=== PATIENT | female | born 1955 | race Caucasian/White ===

== ENCOUNTER 2019-08-03 17:30 | Inpatient (IN) | payer OTHER ==
[~2019-08-03] VITALS: Ht 152.4 cm; Wt 79.1 kg
[2019-08-03 17:40] VITALS: BP 121/74
--- NOTE | 2019-08-03 18:08 | EKG ---
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
[2019-08-03] MEDS ORDERED: ZOLPIDEM 5 MG TABLET. PO PRN (18:45)
[2019-08-03] MEDS ORDERED: NABU750T PO (19:15)
[2019-08-03] MEDS ORDERED: AMLO5TAB10 PO (19:15)
[2019-08-03] MEDS ORDERED: HYDR200T5 PO (19:15)
[2019-08-03] MEDS ORDERED: OMEP20CA16 PO (19:15)
[2019-08-03 19:42] LABS: BASO # 0.1 x10^3/uL (0.0-0.2); BASO % 1 % (0-3); EOS # 0.2 x10^3/uL (0.0-0.7); EOS % 3 % (0-3); HEMATOCRIT 36.9 % (36.0-47.0); HEMOGLOBIN 11.9 g/dL (12.0-15.5); LYMPH # 1.7 x10^3/uL (1.0-4.8); LYMPH % 21 % (24-48); MEAN CORPUSCULAR HEMOGLOBIN 31 pg (25-35); MEAN CORPUSCULAR HGB CONC 32 g/dL (31-37); MEAN CORPUSCULAR VOLUME 96 fL (79-100); MONO # 0.6 x10^3/uL (0.0-1.1); MONO % 7 % (0-9); NEUT # 5.6 x10^3uL (1.8-7.7); NEUT % 68 % (31-73); PLATELET COUNT 207 x10^3/uL (140-400); RED BLOOD COUNT 3.87 x10^6/uL (3.50-5.40); RED CELL DISTRIBUTION WIDTH 13.2 % (11.5-14.5); WHITE BLOOD COUNT 8.2 x10^3/uL (4.0-11.0)
[2019-08-03 19:55] LABS: ALBUMIN 3.5 g/dL (3.4-5.0); ALBUMIN/GLOBULIN RATIO 1.3 (1.0-1.7); CALCIUM 8.5 mg/dL (8.5-10.1); GFR 56.4; POTASSIUM 3.8 mmol/L (3.5-5.1); TOTAL BILIRUBIN 0.6 mg/dL (0.2-1.0); TOTAL PROTEIN 6.3 g/dL (6.4-8.2)
--- NOTE | 2019-08-03 20:16 | RAD ---
PA and lateral chest. HISTORY: CHF PA and lateral views were taken of the chest. Heart is upper normal in size. There is no pleural effusion. There is mild vascular congestion. There are no confluent areas of infiltrate. IMPRESSION: 1. Mild vascular congestion without confluent infiltrates. 2. No effusion. Electronically signed by: Ward Beltran MD (08/03/2019 8:14 PM) [id number]
[2019-08-03] MEDS: HYDROXYCHLOROQUINE 200 MG TABLET PO SCH (22:09)
[2019-08-03] MEDS: NABUMETONE 750 MG PO SCH (22:09)
[2019-08-03] MEDS: FUROSEMIDE 20 MG/2 ML VIAL IVP SCH (22:10)
[2019-08-03 22:14] VITALS: BP 104/65
[2019-08-03 23:12] LABS: BACTERIA,URINE 0 /HPF (0-FEW); BILIRUBIN,URINE NEG (NEG); CLARITY,URINE CLEAR; COLOR,URINE YELLOW; GLUCOSE,URINE NEG (NEG); NITRITE,URINE NEG (NEG); RBC,URINE 0 /HPF (0-2); SQUAMOUS EPITHELIAL CELL,UR OCC /LPF; UROBILINOGEN,URINE 0.2 mg/dL (0.2 mg/dL); WBC,URINE RARE /HPF (0-4)
[2019-08-04 05:18] VITALS: BP 92/53
[2019-08-04] MEDS: HYDROXYCHLOROQUINE 200 MG TABLET PO SCH (08:49)
[2019-08-04] MEDS: NABUMETONE 750 MG PO SCH (08:51)
[2019-08-04] MEDS: FUROSEMIDE 20 MG/2 ML VIAL IVP SCH ×2 (08:55→14:47)
[2019-08-04] MEDS ORDERED: PANTOPRAZOLE 40 MG TABLET. PO SCH (09:00)
[2019-08-04] MEDS ORDERED: amLODIPine BESYLATE 5 MG TABLET PO SCH (09:00)
[2019-08-04 10:22] VITALS: BP 104/62
--- NOTE | 2019-08-04 13:21 | CARD ---
MR#: [id number] Date of Study: 08/04/2019 Ordering Physician: LIYAH BOSS, Referring Physician: LIYAH BOSS, Tech: Yessenia Jolley [facility] [[email or web address]] APPROVED REPORT EXAM: Two-dimensional and M-mode echocardiogram with Doppler and color Doppler. Other Information Quality : AverageHR: 95bpm Rhythm : NSRTechnically limited study due to body habitus. INDICATION Congestive Heart Failure 2D DIMENSIONS RVDd2.8 (2.9-3.5cm)Left Atrium(2D)3.5 (1.6-4.0cm) IVSd0.8 (0.7-1.1cm)Aortic Root(2D)2.3 (2.0-3.7cm) LVDd4.1 (3.9-5.9cm)PWd1.2 (0.7-1.1cm) LVDs2.9 (2.5-4.0cm)FS (%) 29.2 % SV41.5 mlLVEF(%)56.6 (>50%) M-Mode DIMENSIONS Left Atrium(MM)3.43 (2.5-4.0cm)Aortic Root2.33 (2.2-3.7cm) Aortic Valve AoV Peak Nav.138.5cm/sAoV VTI25.3cm AO Peak GR.7.7mmHgAO Mean GR.4mmHg ARLEN (VTI)2.23cm2 Mitral Valve MV E Blbaheua57.8cm/sMV DECEL EYRA988jw MV A Hnzfbktz52.0cm/sE/A Ratio1.6 MV A Ciefpngt32rn Tricuspid Valve TR P. Vrgvaxmi270rw/sRAP RZDWPUCX1ofMg TR Peak Gr.24cjFkZVXJ52eiWm LEFT VENTRICLE The left ventricle is normal size. There is normal left ventricular wall thickness. The left ventricu lar systolic function is normal and the ejection fraction is within normal range. The Ejection Fracti on is 55-60%. There is normal LV segmental wall motion. Transmitral Doppler flow pattern is Grade II- pseudonormal filling dynamics. RIGHT VENTRICLE The right ventricle is normal size. There is normal right ventricular wall thickness. The right ventr icular systolic function is normal. ATRIA The left atrium size is normal. The right atrium size is normal. The interatrial septum is intact wit h no evidence for an atrial septal defect or patent foramen ovale as noted on 2-D or Doppler imaging. AORTIC VALVE The aortic valve is normal in structure and function. The aortic valve is trileaflet. Doppler and Col or Flow revealed no significant aortic regurgitation. There is no significant aortic valvular stenosi s. MITRAL VALVE The mitral valve is normal in structure and function. There is no evidence of mitral valve prolapse. There is no mitral valve stenosis. Doppler and Color-flow revealed trace to mild mitral regurgitation . TRICUSPID VALVE The tricuspid valve is normal in structure and function. Doppler and Color Flow revealed trace to mil d tricuspid regurgitation. The PA pressure was estimated at 25 mmHg. There is no tricuspid valve prol apse or vegetation. There is no tricuspid valve stenosis. PULMONIC VALVE The pulmonic valve is not well visualized. GREAT VESSELS The aortic root is normal in size. The ascending aorta is normal in size. The IVC is normal in size a nd collapses >50% with inspiration. PERICARDIAL EFFUSION There is no evidence of significant pericardial effusion. Critical Notification Critical Value: No <Conclusion> The left ventricular systolic function is normal and the ejection fraction is within normal range. Th e Ejection Fraction is 55-60%. There is normal LV segmental wall motion. Signed by : Tristen Rivera, Electronically Approved : 08/04/2019 11:04:55
[2019-08-04 13:59] LABS: THYROID STIM HORMONE (TSH) 2.611 uIU/mL (0.358-3.740)
[2019-08-04 14:49] VITALS: BP 123/74
[2019-08-04] MEDS ORDERED: FURO-68 PO (18:03)
--- NOTE | 2019-08-05 00:42 | PN ---
DATE: SUBJECTIVE: A 63-year-old female in with acute onset of congestive heart failure. The patient was having marked dyspnea just walking across the parking lot, became increasingly short of breath, had marked orthopnea, could not sleep in bed, had to sleep upright. She had about a 10-pound weight gain. The patient was brought in for new onset of congestive heart failure and further evaluation. The patient is receiving IV Lasix, good diuresis so far. The patient otherwise seems to be resting fairly comfortably. She is to be seen by Cardiology. OBJECTIVE: VITAL SIGNS: Blood pressure 105/60, respiratory rate 20, pulse 82, afebrile, good oxygen saturation just at rest. GENERAL: The patient is alert and oriented. LUNGS: Show some mild rhonchi, but improved from yesterday in the bases. CARDIOVASCULAR: Regular sinus rhythm. ABDOMEN: Soft, nontender. EXTREMITIES: No clubbing, cyanosis, +1 to 2 pitting edema. The patient's chest x-ray did show the possibility of obviously fluid buildup in the lungs themselves. The patient otherwise seems to be resting fairly comfortably. Awaiting report on the echo to make further evaluation and Cardiology consultation as well. IMPRESSION: Acute congestive heart failure. PLAN: As above. LIYAH OBSS MD DR: BAO/sen JOB#: [id number] / [id number]
--- NOTE | 2019-08-05 10:28 | PDOC ---
PROVIDER NOTE PROVIDER NOTE PROVIDER NOTE Late entry for 08/04/2019 Cardiology consultation note Reason for consultation heart failure History of present illness 63-year-old woman with a prior history of scleroderma comes into the hospital in the setting of progressive lower extremity edema. She states that over the last 2-3 weeks she's had worsening edema to point where she had pain and discomfort in her legs and also had exertional dyspnea. Upon arrival to the hospital the only abnormality was some mild vascular congestion on her chest x-ray. Previous bleeding she has been followed by her primary auto top mechanic through the [facility] system and apparently has not had any prior cardiac issues. After arrival she was diuresed with intravenous Lasix and has felt much better. She denies any exertional angina, dyspnea in the past, orthopnea or syncope/palpitations. Her scleroderma manifestations are only are cutaneous. Past medical history as noted above including scleroderma and minimal hypertension Social history patient denies any alcohol, tobacco or illicit drug use Family history is non-contributory Review systems is negative unless otherwise mentioned above in history of present illness Allergies reviewed Current cardiovascular medications include amlodipine Physical examination Vital signs stable The patient appeared well nourished and normally developed. Head exam is unremarkable. No scleral icterus or corneal arcus noted. Neck is without jugular venous distension, thyromegaly, or carotid bruits. Carotid upstrokes are brisk bilaterally. Lungs are clear to auscultation and percussion. Cardiac exam reveals the PMI to be normally sized and situated. Rhythm is regular. First and second heart sounds normal. No murmurs, rubs or gallops. Abdominal exam reveals normal bowel sounds, no masses, no organomegaly and no aortic enlargement. Extremities are nonedematous and both femoral and pedal pulses are normal. Msk: No traumua Neuro: No focal deficits Diagnostic studies reviewed EKG and echocardiogram are unremarkable BNP is minimally elevated Impression: 1. Diastolic heart failure, etiology is unclear but no obvious evidence of ischemia is noted. She appears to be doing much better since diuresis Recommendations: 1. I've asked her to follow-up with her primary care physician/auto top mechanic to further evaluate her dyspnea to rule out any pulmonary involvement from her scleroderma. Her echocardiogram today is unremarkable. Continue Lasix daily for the next 4-5 days and then 3 times a week as needed for lower extremity edema. We spoke about compression therapy as well as her obesity may lend itself to cause some lower extremity venous insufficiency. Supportive care from a cardiovascular standpoint. Thank you for this consultation. TONYA DUARTE MD Aug 05, 2019 10:28
== END 2019-08-04 18:25 | disposition home or self-care (01) | DRG 293 ==
LOC: 1 SOUTH 17:30
PROVIDERS: ADMIT Family Medicine; ATTEND Family Medicine
DX: I11.0 Hypertensive heart disease with heart failure (principal); I50.9 Heart failure, unspecified; M34.9 Systemic sclerosis, unspecified; E66.9 Obesity, unspecified; Z68.34 Body mass index [BMI] 34.0-34.9, adult
CPT/HCPCS: 36415; 71046; 80053; 80061; 81001; 82550; 83880; 84443; 84484; 85025; 85379; 93005; 93306

== ENCOUNTER → 2019-12-10 | Outpatient (CLI) | payer OTHER ==
[~2019-12-10] MED LIST: AMLO-186 PO; FURO-68 PO; HYDR200T5 PO; NABU750T7 PO; OMEP20CA16 PO
--- NOTE | 2019-12-10 15:04 | RAD ---
CT CHEST HIGH RESOLUTION WO INDICATION: SHORT OF AIR, SCLERODERMA Comparison: None. TECHNIQUE: Unenhanced axial CT sections were obtained through the lungs and upper abdomen. Coronal and sagittal multiplanar reconstructions were also obtained. Unenhanced thin section axial images were obtained through the lungs. Inspiratory and expiratory high resolution images were obtained. PQRS compliance statement: One or more of the following individualized dose reduction techniques were utilized for this examination: 1. Automated exposure control 2. Adjustment of the mA and/or kV according to patient size 3. Use of iterative reconstruction technique FINDINGS: Lungs and Airways: No pulmonary mass or consolidation No endoluminal lesion. Inspiratory thin section images demonstrate no evidence of ground glass opacity, consolidation, bronchiectasis or interstitial lung disease. No pulmonary micronodules, cystic changes or pulmonary fibrosis. Expiratory high resolution images demonstrate extensive bilateral air trapping. Pleura: The pleural spaces are normal. Heart and Mediastinum: The visualized portions of the thyroid gland are normal in size and attenuation. No axillary or supraclavicular lymphadenopathy. No mediastinal, hilar or retrocrural lymphadenopathy. Cardiomegaly. Coronary artery atherosclerotic disease The great vessels of the thorax are normal. Abdomen: Cholecystectomy Bones and Soft Tissues: Normal osseous structures. The soft tissues of the chest wall are within normal limits. IMPRESSION: 1. No evidence of interstitial lung disease. 2. Extensive bilateral air trapping on expiratory imaging, likely due to small airways disease. Considerations would include constrictive bronchiolitis, given history of scleroderma. Correlate with pulmonary function tests. 3. Coronary artery atherosclerotic disease. Electronically signed by: Tr Dorantes MD (12/10/2019 3:02 PM) [id number]
== END ==
LOC: CT 13:56
PROVIDERS: ATTEND Internal Medicine Pulmonary Disease
DX: R06.02 Shortness of breath (principal); M34.9 Systemic sclerosis, unspecified; I25.10 Atherosclerotic heart disease of native coronary artery without angina pectoris
CPT/HCPCS: 71250

== ENCOUNTER → 2020-03-02 | Outpatient (CLI) | payer OTHER ==
[~2020-03-02] MED LIST changes: -AMLO-186 PO; +AMLO5TAB10 PO; +NABU750T PO; -NABU750T7 PO; +REGADENOSON 0.4 MG/5 ML DISP.SYRIN. IV ONE
--- NOTE | 2020-03-02 13:39 | RAD ---
MR#: [id number] Date of Study: 03/02/2020 Ordering Physician: TONYA DUARTE, Referring Physician: CHENG CHASE Tech: CARMEN García APPROVED REPORT Test Type: Pharmacological Stress Nurse/Tech: CARMEN García Test Indications: Shortness of breath Cardiac History: none Medications: see EHR Medical History: see EHR Resting ECG: SR Resting Heart Rate: 91 bpm Resting Blood Pressure: 148/53mmHg Pretest Chest Pain: None Nurse/Tech Notes Consent: The procedure was explained to the patient in lay terms. Informed consent was witnessed. Surinder eout was entered into [employer]. History and Stress Test performed by CARMEN García Pharm. Details Pharmacologic stress testing was performed using 0.4mg per 5ml of regadenoson given intravenously ove r 7-10 seconds. POST EXERCISE Max HR: 107 bpm Max Blood Pressure: 112/53mmHg Blood Pressure response to exercise: Normal blood pressure response during stress. Chest Pain: No. Arrhythmia: No. INTERPRETATION Stress EKG Conclusion: No acute changes with stress Imaging Protocol IMAGE PROTOCOL: Rest Tc-99m/stress Tc-99m 1 day Rest: Stress: Viability: Radiopharm.Tc99m FkgnitqqhZu09p Sestamibi Tehr03fSn 33mCi Duration 15min. 10min. Img Date 03/02/2020 03/02/2020 Inj-Img Inoi74vqm. 60min. Rest Admin Site:IV - Right HandAdministrator: CARMEN García Stress Admin Site: IV - Right HandAdministrator: CARMEN García STRESS DATA End Diast. Vol.61.0mlAv. Heart Rate82.0bpm End Syst. Vol.5.0mlCO Index BSA0.0L/min Myocardial Xizt947.0gEject. Xnezmpcx57.0% Stress Rates Pk. Fill Rate3.68EDV/secLVtime Pk. Fill 118.17msec Pk. Empty Rate3.78ESV/secLVtime Pk. Qmtus670.21msec 06/25 Pk. Fill1.99EDV/sec Stress Scores Regional WT0.00Summed WT0.00 Regional WM0.00Summed WM0.00 The rest and stress images show normal perfusion, normal contraction and thickening. LV Perf. Quant 17 Seg. SSS2.00 17 Seg. SRS0.00 17 Seg. SDS2.00 Stress Defect Extent (% LAD)7.50Rest Defect Extent (% LAD)0.00Rev. Defect Extent (% LAD)0.00 Stress Defect Extent (% LCX) 0.00Rest Defect Extent (% LCX)0.00Rev. Defect Extent (% LCX)0.00 Stress Defect Extent (% RCA)0.00Rest Defect Extent (% RCA)0.00Rev. Defect Extent (% RCA)0.00 Stress Defect Extent (% MAYNOR)3.90Rest Defect Extent (% MAYONR)0.00Rev. Defect Extent (% MAYNOR)0.00 Other Information Quality:Good Risk Assessment: Low Risk Conclusion 1. No evidence of EKG changes with stress testing. 2. Normal perfusion at stress/rest. 3. Low risk study. 4. EF > 60%. Signed by : Tonya Duarte, Electronically Approved : 03/02/2020 13:38:55
== END | disposition home or self-care (01) ==
LOC: NM 08:30
PROVIDERS: ATTEND Internal Medicine Cardiovascular Disease
DX: I11.0 Hypertensive heart disease with heart failure (principal); I50.30 Unspecified diastolic (congestive) heart failure; M34.89 Other systemic sclerosis; Z88.8 Allergy status to other drugs, medicaments and biological substances; Z83.3 Family history of diabetes mellitus; Z79.899 Other long term (current) drug therapy
CPT/HCPCS: 78452; 93017; 96374; 96376; A9500

== ENCOUNTER 2021-02-28 05:04 | Inpatient (IN) | payer OTHER ==
[~2021-02-28] VITALS: Ht 152.4 cm; Wt 75.1 kg
[~2021-02-28 05:04] MED LIST changes: +AMLO-186 PO; -AMLO5TAB10 PO; -NABU750T PO; +NABU750T11 PO; -REGADENOSON 0.4 MG/5 ML DISP.SYRIN. IV ONE
--- NOTE | 2021-02-28 05:06 | PHYS DOC ---
Past History Past Medical History: Arthritis, GERD Past Medical History Scleroderma diagnosed 2011 Smoking: Non-smoker General Adult EDM: Chief Complaint: CHEST PAIN HPI: HPI: ".. I ve been having chest pain all night .. here in center of my chest.. and it goes into my Lt. arm shoulder.. and I just could not get to sleep.. I am to see a research consultant .. Dr López.. " Patient is a 65 year old female who presents with above hx and complaints of chest pain. Pain has been varying intensity throughout the night. Never low enough that allow her to go to sleep. Patient rating her pain as 7 out of 10 patient has been having the pain off and on for the past couple weeks. Patient localizes pain to chest left shoulder and to the left neck. Patient states nothing seems to make it better or worse. Patient denies any trauma. Patient denies any sick ill contacts. Patient denies any recent travel no history of immunosuppression. Patient does have a history of sclera derma diagnosed in 2011., GERD, CHF, arthritis,.. The patient does not smoke. Patient does not use alcohol or illicit drugs. Patient has had COVID vaccination. the pt. normally follows with Dr Boss. Pt. follows with Dr. Grey Guillen [facility] for her Scleroderma med tx. patient is not on a anticoagulant. Patient not currently on any steroids. Review of Systems: Review of Systems: Constitutional: Denies fever or chills Eyes: Denies change in visual acuity HENT: Denies nasal congestion or sore throat Respiratory: Denies cough or shortness of breath Cardiovascular: Complains of chest pain GI: Denies abdominal pain, nausea, vomiting, bloody stools or diarrhea : Denies dysuria Musculoskeletal: Complains of neck pain Integument: Denies rash Neurologic: Denies headache, focal weakness or sensory changes Endocrine: Denies polyuria or polydipsia Lymphatic: Denies swollen glands Psychiatric: Denies depression or anxiety Family History: Family History: Noncontributory to presentation Current Medications: Current Meds: See nursing for home meds Allergies: Allergies: Allergies Coded Allergies Type Severity Reaction Last Updated Verified prochlorperazine Allergy Unknown 08/03/19 Yes Physical Exam: PE: Constitutional: Moderate acute distress, non-toxic appearance. [] HENT: Normocephalic, atraumatic, bilateral external ears normal, oropharynx moist, no oral exudates, nose normal. [] Eyes: PERRLA, EOMI, conjunctiva normal, no discharge. Glasses Neck: Normal range of motion, no tenderness, supple, no stridor. [] Cardiovascular:Heart rate regular rhythm, no murmur []. PMI slightly to left. Lungs & Thorax: Bilateral breath sounds equal at apex auscultation [] Abdomen: Bowel sounds normal, soft, no tenderness, no masses, no pulsatile masses. [] Skin: Warm, dry, no erythema, no rash. Poor turgor Back: No tenderness, no CVA tenderness. [] Extremities: No tenderness, no cyanosis, no clubbing, ROM intact, no edema. No cording appreciated Neurologic: Alert and oriented X 3, normal motor function, normal sensory function, no focal deficits noted. [] Psychologic: Affect anxious, judgement normal, mood normal. [] EKG: EKG: My interpretation EKG shows a sinus rhythm at 71 bpm. There is some prolonged QT interval at 448 ms. QTC is 492 ms. No findings of acute STEMI with c ontralateral changes. Time of EKG is 517 hours [] Radiology/Procedures: Radiology/Procedures: My interpretation of chest x-ray shows no marked areas of infiltrate. Heart size is to the upper sides of normal. There is no pleural effusions. There may be some mild vascular congestion. See formal report when available [] Heart Score: C/O Chest Pain: Yes HEART Score for Chest Pain: HEART Score for Chest Pain Response (Comments) Value History Slighlty/Non-Suspicious 0 ECG Nonspecific Repolarizatio 1 Age >45 - < 65 1 Risk Factors 1 or 2 Risk Factors 1 Total 3 Risk Factors: Risk Factors: DM, Current or recent (<one month) smoker, HTN, HLP, family history of CAD, obesity. Risk Scores: Score 0 - 3: 2.5% MACE over next 6 weeks - Discharge Home Score 4 - 6: 20.3% MACE over next 6 weeks - Admit for Clinical Observation Score 7 - 10: 72.7% MACE over next 6 weeks - Early Invasive Strategies Course & Med Decision Making: Course & Med Decision Making Pertinent Labs and Imaging studies reviewed. (See chart for details) Pain is very resolved at 541 hours. Discussed presentation, testing and tx plan with Dr. Boss. Advised admit to his service with Cardiology consult. Impression: 1. Chest pain 2. History of CHF 3. History of GERD 4. History of scleroderma 5. Hx of Anxiety [] Dragon Disclaimer: Janet Disclaimer: This electronic medical record was generated, in whole or in part, using a voice recognition dictation system. Departure Departure: Referrals: LIYAH BOSS MD (PCP) HILDA PTETIT MD Feb 28, 2021 05:06
[2021-02-28] MEDS ORDERED: ASPIRIN CHEWABLE 81 MG TABLET. PO ONE ×2 (05:15→09:00)
[2021-02-28] MEDS ORDERED: IV RINGERS SOLUTION,LACTATED 1,000 ML IV SCH (05:15)
[2021-02-28] MEDS ORDERED: FAMOTIDINE 20 MG/2 ML VIAL IVP ONE (05:30)
--- NOTE | 2021-02-28 05:30 | EKG ---
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
[2021-02-28 05:46] LABS: CALCIUM 8.6 mg/dL (8.5-10.1); POTASSIUM 3.8 mmol/L (3.5-5.1)
[2021-02-28 05:58] LABS: ALBUMIN 3.5 g/dL (3.4-5.0); DIRECT BILIRUBIN 0.1 mg/dL (0.0-0.2); MAGNESIUM 2.3 mg/dL (1.8-2.4); TOTAL BILIRUBIN 0.6 mg/dL (0.2-1.0); TOTAL PROTEIN 5.9 g/dL (6.4-8.2)
[2021-02-28] MEDS ORDERED: ENOXAPARIN ** NOTE DOSE ** SYRINGE SQ ONE ×2 (06:00→21:00)
[2021-02-28] MEDS ORDERED: ONDANSETRON PF 4 MG/2 ML VIAL. IVP PRN (06:00)
[2021-02-28] MEDS ORDERED: ACETAMINOPHEN 325 MG TABLET PO PRN (06:00)
[2021-02-28 06:46] LABS: BARBITURATES NEG (NEG); BENZODIAZEPINES NEG (NEG); CANNABINOIDS NEG (NEG); COCAINE NEG (NEG); METHADONE NEG (NEG); OPIATES NEG (NEG); PHENCYCLIDINE NEG (NEG)
[2021-02-28 06:48] LABS: BASO # 0.1 x10^3/uL (0.0-0.2); BASO % 1 % (0-3); EOS # 0.2 x10^3/uL (0.0-0.7); EOS % 2 % (0-3); HEMATOCRIT 38.5 % (36.0-47.0); HEMOGLOBIN 12.7 g/dL (12.0-15.5); LYMPH # 2.2 x10^3/uL (1.0-4.8); LYMPH % 24 % (24-48); MEAN CORPUSCULAR HEMOGLOBIN 32 pg (25-35); MEAN CORPUSCULAR HGB CONC 33 g/dL (31-37); MEAN CORPUSCULAR VOLUME 98 fL (79-100); MONO # 0.6 x10^3/uL (0.0-1.1); MONO % 7 % (0-9); NEUT # 6.1 x10^3uL (1.8-7.7); NEUT % 67 % (31-73); PLATELET COUNT 219 x10^3/uL (140-400); RED BLOOD COUNT 3.93 x10^6/uL (3.50-5.40); RED CELL DISTRIBUTION WIDTH 12.9 % (11.5-14.5); WHITE BLOOD COUNT 9.1 x10^3/uL (4.0-11.0)
[2021-02-28 06:50] LABS: AMPHETAMINE/METHAMPHETAMINE NEG (NEG)
[2021-02-28 07:03] LABS: BACTERIA,URINE 0 /HPF (0-FEW); BILIRUBIN,URINE NEG (NEG); CLARITY,URINE HAZY; COLOR,URINE YELLOW; GLUCOSE,URINE NEG (NEG); HYALINE CASTS, URINE FEW /HPF; NITRITE,URINE NEG (NEG); RBC,URINE OCC /HPF (0-2); SQUAMOUS EPITHELIAL CELL,UR MOD /LPF; UROBILINOGEN,URINE 0.2 mg/dL (0.2 mg/dL)
--- NOTE | 2021-02-28 07:24 | RAD ---
XR CHEST 1V History: Chest pain Comparison: None. Technique: AP radiograph of the chest. Findings: The lungs are adequately and symmetrically inflated. No airspace consolidation, pleural effusion or p neumothorax. The cardiomediastinal silhouette and pulmonary vasculature are within normal limits. No acute osseous abnormality. Soft tissues are unremarkable. Impression: 1. No acute cardiopulmonary process. Electronically signed by: Finn Joseph MD (02/28/2021 7:22 AM) [facility]
--- NOTE | 2021-02-28 08:22 | PDOC2 ---
SHIRA OGDEN BELLE 02/28/21 0822: CARDIAC CONSULT DATE OF CONSULT DOS: DATE: 02/28/21 TIME: 08:14 REASON FOR CONSULT Reason for Consult Chest pain REFERRING PHYSICIAN Referring Physician Dr. Ko SOURCE Source: Chart review, Patient HPI History of Present Illness This is a 65 yo female, with a history of scleroderma, who presented secondary to chest pain. Patient reports intermittent pressure in her central chest for the last several years. Seems to occur with exertional activities and resolved with rest. She underwent stress test and echocardiogram last year that were unremarkable. In recent months, pain has been occurring more frequently and also developing at rest. Over the last couple of weeks, has been experiencing this pain at night as well. Is located in her left chest. Describes as pressure. Radiated down her left arm. Not associated with dizziness, nausea, or diaphoresis. Pain seemed to improved with sitting up. Does have a history of G ERD and is on PPI. Reports pain to be different than what she typically experiences with GERD. 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 Last night, pain was very intense and was associate with shortness of breath, left arm pain/hand tingling, diaphoresis, and so she came to the ED for further evaluation and treatment. Initial troponin negative and EKG unremarkable. PAST MEDICAL HISTORY Past Medical History Scleroderma GI: Diverticulosis, GERD PAST SURGICAL HISTORY Past Surgical History: Cholecystectomy FAMILY HISTORY Family History: Cancer, Diabetes SOCIAL HISTORY Smoke: No ALCOHOL: none Drugs: None Lives: with Family CURRENT MEDICATIONS Current Medications Current Medications Aspirin (Aspirin Chewable) 324 mg 1X ONCE PO Last administered on 02/28/21at 05:31; Start 02/28/21 at 05:15; Stop 02/28/21 at 05:16; Status DC Lactated Ringer's 1,000 ml @ 100 mls/hr Q10H IV Last administered on 02/28/21at 05:31; Start 02/28/21 at 05:15; Stop 02/28/21 at 15:14 Famotidine (Pepcid Vial) 20 mg 1X ONCE IVP Last administered on 02/28/21at 05:39; Start 02/28/21 at 05:30; Stop 02/28/21 at 05:31; Status DC Enoxaparin Sodium (Lovenox 60mg Syringe) 70 mg 1X ONCE SQ ; Start 02/28/21 at 06:00; Stop 02/28/21 at 06:01; Status DC Ondansetron HCl (Zofran) 4 mg PRN Q4HRS PRN IVP NAUSEA/VOMITING; Start 02/28/21 at 06:00; Stop 03/01/21 at 05:59 Morphine Sulfate (Morphine 2mg Syringe) 2 mg PRN Q2HR PRN IVP PAIN; Start 02/28/21 at 06:00; Stop 03/01/21 at 05:59 Acetaminophen (Tylenol) 650 mg PRN Q4HRS PRN PO FEVER > 100.3'F; Start 02/28/21 at 06:00; Stop 03/01/21 at 05:59 Aspirin (Aspirin Chewable) 81 mg DAILY ONCE PO ; Start 02/28/21 at 09:00; Stop 02/28/21 at 09:01 Enoxaparin Sodium (Lovenox 60mg Syringe) 70 mg BID ONCE SQ ; Start 02/28/21 at 21:00; Stop 02/28/21 at 21:01 Famotidine (Pepcid) 20 mg BID ONCE PO ; Start 02/28/21 at 21:00; Stop 02/28/21 at 21:01 Sucralfate (Carafate) 1 gm QID ONCE PO ; Start 02/28/21 at 09:00; Stop 02/28/21 at 09:01 Active Scripts Active Reported Lasix (Furosemide) 40 Mg Tablet 1 Tab PO DAILY 5 Days LAST DOSE GIVEN: DATE: TODAY TIME: AM NEXT DOSE DUE: DATE: TOMORROW TIME: AM Omeprazole 20 Mg Capsule.dr 1 Cap PO DAILY LAST DOSE GIVEN: DATE: TODAY TIME: AM NEXT DOSE DUE: DATE: TOMORROW TIME: AM Hydroxychloroquine Sulfate 200 Mg Tablet 1 Tab PO BID LAST DOSE GIVEN: DATE: TODAY TIME: AM NEXT DOSE DUE: DATE: TODAY TIME: PM Amlodipine Besylate 5 Mg Tablet 1 Tab PO DAILY LAST DOSE GIVEN: DATE: TODAY TIME: AM NEXT DOSE DUE: DATE: TOMORROW TIME: AM Nabumetone 750 Mg Tablet 1 Tab PO BID LAST DOSE GIVEN: DATE: TODAY TIME: AM NEXT DOSE DUE: DATE: TODAY TIME: PM ALLERGIES Allergies: Coded Allergies: prochlorperazine (Verified Allergy, Unknown, 08/03/19) ROS Review of Systems 14 point ROS conducted with pertinent positives noted above in HPI PHYSICAL EXAM General: Alert, Oriented X3, Cooperative, No acute distress HEENT: Atraumatic Lungs: Clear to auscultation Heart: Regular rate Abdomen: Soft, No tenderness Extremities: No edema, Normal pulses Skin: No breakdown Neuro: Normal speech, Sensation intact Psych/Mental Status: Mental status NL, Mood NL MUSCULOSKELETAL: Osteoarthritic changes both hands VITALS Vital Signs Vital Signs Date Time Temp Pulse Resp B/P (MAP) Pulse Ox O2 Delivery O2 Flow Rate FiO2 02/28/21 07:38 76 16 136/65 (88) 96 Room Air 02/28/21 05:09 98.4 LABS LABS Laboratory Tests Test 02/28/21 05:15 02/28/21 06:00 02/28/21 06:25 Prothrombin Time 10.3 SEC (9.4-11.4) Prothromb Time International Ratio 1.0 (0.9-1.1) Activated Partial Thromboplast Time 25 SEC (23-33) D-Dimer (June) < 0.19 mg/L (0.00-0.50) Sodium Level 143 mmol/L (136-145) Potassium Level 3.8 mmol/L (3.5-5.1) Chloride Level 107 mmol/L (98-107) Carbon Dioxide Level 25 mmol/L (21-32) Anion Gap 11 (6-14) Blood Urea Nitrogen 19 mg/dL (7-20) Creatinine 1.0 mg/dL (0.6-1.0) Estimated GFR (Cockcroft-Gault) 56.0 Glucose Level 132 mg/dL (70-99) Calcium Level 8.6 mg/dL (8.5-10.1) Magnesium Level 2.3 mg/dL (1.8-2.4) Total Bilirubin 0.6 mg/dL (0.2-1.0) Direct Bilirubin 0.1 mg/dL (0.0-0.2) Aspartate Amino Transf (AST/SGOT) 20 U/L (15-37) Alanine Aminotransferase (ALT/SGPT) 24 U/L (14-59) Alkaline Phosphatase 107 U/L (46-116) Creatine Kinase 87 U/L (26-192) Troponin I Quantitative < 0.017 ng/mL (0-0.055) TL-Hlj-W-Type Natriuretic Peptide 123 pg/mL (0-124) Total Protein 5.9 g/dL (6.4-8.2) Albumin 3.5 g/dL (3.4-5.0) Lipase 181 U/L (73-393) Urine Collection Type Unknown Urine Color Yellow Urine Clarity Hazy Urine pH 6.0 Urine Specific Bates 1.020 Urine Protein Neg (NEG-TRACE) Urine Glucose (UA) Neg mg/dL (NEG) Urine Ketones (Stick) Neg mg/dL (NEG) Urine Blood Neg (NEG) Urine Nitrite Neg (NEG) Urine Bilirubin Neg (NEG) Urine Urobilinogen Dipstick 0.2 mg/dL (0.2 mg/dL) Urine Leukocyte Esterase Mod (NEG) Urine RBC Occ /HPF (0-2) Urine WBC 11-20 /HPF (0-4) Urine Squamous Epithelial Cells Mod /LPF Urine Transitional Epithelial Cells Few /LPF Urine Bacteria 0 /HPF (0-FEW) Urine Hyaline Casts Few /HPF Urine Mucus Mod /LPF Urine Opiates Screen Neg (NEG) Urine Methadone Screen Neg (NEG) Urine Barbiturates Neg (NEG) Urine Phencyclidine Screen Neg (NEG) Urine Amphetamine/Methamphetamine Neg (NEG) Urine Benzodiazepines Screen Neg (NEG) Urine Cocaine Screen Neg (NEG) Urine Cannabinoids Screen Neg (NEG) Urine Ethyl Alcohol Neg (NEG) SARS-CoV-2 Antigen (Rapid) Negative (NEGATIVE) White Blood Count 9.1 x10^3/uL (4.0-11.0) Red Blood Count 3.93 x10^6/uL (3.50-5.40) Hemoglobin 12.7 g/dL (12.0-15.5) Hematocrit 38.5 % (36.0-47.0) Mean Corpuscular Volume 98 fL (79-100) Mean Corpuscular Hemoglobin 32 pg (25-35) Mean Corpuscular Hemoglobin Concent 33 g/dL (31-37) Red Cell Distribution Width 12.9 % (11.5-14.5) Platelet Count 219 x10^3/uL (140-400) Neutrophils (%) (Auto) 67 % (31-73) Lymphocytes (%) (Auto) 24 % (24-48) Monocytes (%) (Auto) 7 % (0-9) Eosinophils (%) (Auto) 2 % (0-3) Basophils (%) (Auto) 1 % (0-3) Neutrophils # (Auto) 6.1 x10^3uL (1.8-7.7) Lymphocytes # (Auto) 2.2 x10^3/uL (1.0-4.8) Monocytes # (Auto) 0.6 x10^3/uL (0.0-1.1) Eosinophils # (Auto) 0.2 x10^3/uL (0.0-0.7) Basophils # (Auto) 0.1 x10^3/uL (0.0-0.2) ECHOCARDIOGRAM Echocardiogram <Conclusion> The left ventricular systolic function is normal and the ejection fraction is within normal range. The Ejection Fraction is 55-60%. There is normal LV segmental wall motion. DATE: 08/04/19 1027 STRESS TEST Stress Test Conclusion 1. No evidence of EKG changes with stress testing. 2. Normal perfusion at stress/rest. 3. Low risk study. 4. EF > 60%. DATE: 03/02/20 1243 ASSESSMENT/PLAN Assessment/Plan 1. Chest pain with typical features; initial troponin negative. EKG without acute changes. MPI 03/12 without evidence of ischemia. Echo 08/12 with preserved LV systolic function 2. Scleroderma 3. GERD Recommendations Trend troponin ASA Lipids Will need further ischemic ischemic evaluation. Discussed aggressive, definitive approach with left heart cath versus repeating stress test, although this was conducted one year ago. Will await above to determine plan of care TONYA DUARTE MD 02/28/21 4625: CARDIAC CONSULT ASSESSMENT/PLAN Assessment/Plan Patient seen and examined. Agree with above nurse practitioner note. 65-year-old woman with features suggestive of unstable angina. I had a discussion with the patient regarding further evaluation as she has significant symptoms. She wishes to proceed with cardiac catheterization. We discussed the risks and benefits. We will plan on transferring to [facility] for possible cardiac catheterization tomorrow. SHIRA OGDEN APRN Feb 28, 2021 08:22 TONYA DUARTE MD Feb 28, 2021 17:15
[2021-02-28 08:55] VITALS: BP 151/72
[2021-02-28] MEDS ORDERED: SUCRALFATE 1 GM TABLET. PO ONE (09:00)
[2021-02-28] MEDS: ENOXAPARIN ** NOTE DOSE ** SYRINGE SQ SCH ×2 (10:08→20:37)
[2021-02-28] MEDS: FUROSEMIDE 40 MG TABLET PO SCH (10:29)
[2021-02-28] MEDS: MELOXICAM 15 MG TABLET. PO SCH (10:29)
[2021-02-28] MEDS ORDERED: IOHEXOL 350 MG/ML 100 ML VIAL. IV ONE (10:30)
[2021-02-28] MEDS: amLODIPine BESYLATE 5 MG TABLET PO SCH (10:30)
[2021-02-28] MEDS ORDERED: CONTRAST GIVEN. MC PRN (10:30)
[2021-02-28] MEDS ORDERED: PANTOPRAZOLE 40 MG TABLET. PO ONE (10:45)
[2021-02-28 11:00] VITALS: BP 132/65
[2021-02-28] MEDS: SUCRALFATE 1 GM TABLET. PO SCH ×3 (11:30→20:36)
[2021-02-28] MEDS: MORPHINE SULFATE 2 MG/ML DISP.SYRIN. IVP PRN ×2 (11:41→19:09)
--- NOTE | 2021-02-28 12:11 | RAD ---
Study: CT CHEST WITH CONTRAST - PULMONARY ANGIOGRAM History: Chest pain Comparison: CT chest 12/10/2019 Technique: Helical CT of the chest performed after the administration of 100 mL Omnipaque 350 intrav enous contrast and timed for angiographic evaluation of the pulmonary arteries per PE protocol. Coron al and sagittal 3D MIP reformations were obtained. One or more of the following individualized dose reduction techniques were utilized for this examinat ion: 1. Automated exposure control 2. Adjustment of the mA and/or kV according to patient size 3. Use of iterative reconstruction technique. Findings: Pulmonary Arteries: Contrast bolus is adequate. There is no acute pulmonary embolism. Heart/Systemic Vasculature: Heart is normal in size. No pericardial effusion. Mild coronary artery ca lcifications. No aortic dissection. Thoracic aorta is normal in caliber. Mediastinum: Small mediastinal and hilar lymph nodes are unchanged. Lungs: There is unchanged mosaic attenuation in the lungs. Central airways are clear. No pleural effu santiago. Neck/Axilla/Body Wall: No axillary lymphadenopathy. Breast tissue symmetric. Thyroid gland is unremar kable Upper Abdomen: Upper abdomen is unremarkable. Bones: No acute osseous abnormality. IMPRESSION: 1. No acute pulmonary embolism. 2. Unchanged mosaic attenuation of the lungs corresponding with air trapping on prior CT. Electronically signed by: Machelle Peck MD (02/28/2021 12:09 PM) [id number]
[2021-02-28 15:00] VITALS: BP 136/66
[2021-02-28 15:57] LABS: THYROID STIM HORMONE (TSH) 4.934 uIU/mL (0.358-3.740)
[2021-02-28] MEDS ORDERED: IV NORMAL SALINE 1,000ML 1,000 ML IV SCH (18:30)
[2021-02-28 18:44] VITALS: BP 103/65
[2021-02-28] MEDS: IV NORMAL SALINE 1,000ML 1,000 ML IV SCH (18:45)
--- NOTE | 2021-02-28 20:21 | HP ---
ADMIT DATE: 02/28/2021 HISTORY OF PRESENT ILLNESS: The patient is a 65-year-old female who for the past several days now has been having problems with chest discomfort, substernal chest pain radiating to her shoulders. The patient has also been having problems with some nausea. The pain usually gets worse at night and nothing seems to make it better or worse, is varying intensity, keeps her up as noted. The patient notes the pain as a 7/10. She also notes some of the pain located over the left shoulder and the like. The patient reports no shortness of breath, does have diaphoresis with this and does have some nausea with it as well. The patient was admitted for rule out [place] protocol and make further evaluation on her as indicated. The patient does note some of the pain is relieved with sitting up, however, worse when she is lying down. PAST MEDICAL HISTORY: That of scleroderma, hearing loss, hearing aid, shingles of the ear, tinnitus, cardiac disorder, chest pain with exertion and history of Raynaud's ____ scleroderma, respiratory symptoms, respiratory disorders, diverticulosis, obesity, GERD, incontinence, eczema. VACCINATION: Influenza vaccination up to date. FAMILY HISTORY: Positive for diabetes and brain cancer in mother and father respectively. ALLERGIES: TO PROCHLORPERAZINE. SOCIAL HISTORY: The patient denies smoking, alcohol or drug use. The patient is a full code. REVIEW OF SYSTEMS: She does have some mild headaches, but no visual changes, some nausea, but no vomiting. The patient notes chest pain as indicated. Otherwise, usually worse with lying down, better with sitting up, does not notice any food bothering her. The patient has some constipation, otherwise unremarkable. Neurologically baseline there. PHYSICAL EXAMINATION: GENERAL: This is a pleasant white female, in moderate amount of distress with her chest discomfort. VITAL SIGNS: Blood pressure 150/70, respiratory rate 18, pulse 72, afebrile, 2 liters at 97. HEENT: The patient's head was atraumatic, normocephalic ____ appearing white female. The patient's eyes were PERRLA. Mouth and throat normal. NECK: Supple. LUNGS: Diminished, but clear. CARDIOVASCULAR: Regular sinus rhythm, S1, S2. ABDOMEN: Soft, nontender, no rebound or guarding. Positive bowel sounds, no hepatosplenomegaly. EXTREMITIES: No clubbing, cyanosis. Trace edema noted. Pulses noted distally. NEUROLOGIC: Alert and oriented. Speech fluent, spontaneous, appropriate. LABORATORY DATA: The patient's chemistries show a slightly elevated TSH of 4.9. Cholesterol stable. White count 9, hemoglobin 12, hematocrit 38, ____ was only 6. C-reactive protein 1.3. Troponins have been negative. Coags negative. Urine tox screen negative, 11-20 white blood cells. Serology for SARS is negative. IMPRESSION: Chest pain, rule out unstable angina, possible gastroesophageal reflux disease, possible complications of her diagnosis of scleroderma. The patient otherwise is resting fairly comfortably. She had a CTA because of this chest pain and just noted some air trapping in the lungs, but no mention of any esophageal thickening or the like or pulmonary fibrosis. The patient will be admitted to rule out LA protocol, see Dr. Rivera. I take her down for heart catheterization, possible GI consult and make further evaluation at that time. CHRISTIAN/PAOLO DR: Lillian TID: [id number]
[2021-02-28] MEDS: HYDROXYCHLOROQUINE 200 MG TABLET PO SCH (20:36)
[2021-02-28] MEDS ORDERED: FAMOTIDINE 20 MG TABLET PO ONE (21:00)
[2021-02-28 22:55] VITALS: BP 106/67
[2021-03-01 06:07] VITALS: BP 94/61
[2021-03-01] MEDS: SUCRALFATE 1 GM TABLET. PO SCH (07:30)
[2021-03-01] MEDS ORDERED: PANTOPRAZOLE 40 MG TABLET. PO SCH (07:30)
[2021-03-01 07:38] LABS: BASO # 0.1 x10^3/uL (0.0-0.2); BASO % 1 % (0-3); EOS # 0.2 x10^3/uL (0.0-0.7); EOS % 2 % (0-3); HEMATOCRIT 37.5 % (36.0-47.0); HEMOGLOBIN 12.4 g/dL (12.0-15.5); LYMPH # 2.5 x10^3/uL (1.0-4.8); LYMPH % 33 % (24-48); MEAN CORPUSCULAR HEMOGLOBIN 32 pg (25-35); MEAN CORPUSCULAR HGB CONC 33 g/dL (31-37); MEAN CORPUSCULAR VOLUME 98 fL (79-100); MONO # 0.6 x10^3/uL (0.0-1.1); MONO % 7 % (0-9); NEUT # 4.3 x10^3uL (1.8-7.7); NEUT % 57 % (31-73); PLATELET COUNT 212 x10^3/uL (140-400); RED BLOOD COUNT 3.82 x10^6/uL (3.50-5.40); RED CELL DISTRIBUTION WIDTH 13.2 % (11.5-14.5); WHITE BLOOD COUNT 7.7 x10^3/uL (4.0-11.0)
[2021-03-01] MEDS: amLODIPine BESYLATE 5 MG TABLET PO SCH (07:47)
[2021-03-01 07:49] LABS: CALCIUM 8.5 mg/dL (8.5-10.1); CREATININE 0.9 mg/dL (0.6-1.0); GFR 63.2; POTASSIUM 3.8 mmol/L (3.5-5.1)
[2021-03-01 07:52] VITALS: BP 102/64
[2021-03-01] MEDS ORDERED: ASPIRIN ENTERIC COATED 81 MG TABLET.DR. PO SCH (08:00)
[2021-03-01] MEDS: IV NORMAL SALINE 1,000ML 1,000 ML IV SCH (08:05)
[2021-03-01] MEDS: MELOXICAM 15 MG TABLET. PO SCH (09:00)
[2021-03-01] MEDS: HYDROXYCHLOROQUINE 200 MG TABLET PO SCH (09:00)
[2021-03-01] MEDS: FUROSEMIDE 40 MG TABLET PO SCH (09:00)
--- NOTE | 2021-03-01 14:33 | DS ---
DATE OF DISCHARGE: 03/01/2021 HOSPITAL COURSE: A 65-year-old female admitted with chest pain, shortness of breath. The patient came in through the Emergency Room for rule out [place] protocol. The patient continued to have chest pain, usually at night. She has a history of scleroderma. She was admitted, rule out UT protocol was negative. However, because of her continued chest pain, wanted to do a heart catheterization, so she was transferred down to [place] for a heart catheterization. IMPRESSION: 1. Chest pain. 2. Scleroderma. 3. Gastroesophageal reflux disease. PLAN: As above. Continue to monitor patient accordingly and make further adjustment once her situation has been heart catheterization with Dr. Rivera, transferred via EMS. BAO/RICHAR DR: BAO/sen TID: [id number]
== END 2021-03-01 09:00 | disposition short-term general hospital (02) | DRG 313 ==
LOC: ER 05:04 → ICU 06:36 → 1 SOUTH 15:51
PROVIDERS: ADMIT Family Medicine; ATTEND Family Medicine
DX: R07.9 Chest pain, unspecified (principal); I50.9 Heart failure, unspecified; I73.00 Raynaud's syndrome without gangrene; K21.9 Gastro-esophageal reflux disease without esophagitis; M19.90 Unspecified osteoarthritis, unspecified site; M34.9 Systemic sclerosis, unspecified; E66.9 Obesity, unspecified; F41.9 Anxiety disorder, unspecified; K57.90 Diverticulosis of intestine, part unspecified, without perforation or abscess without bleeding; Z80.8 Family history of malignant neoplasm of other organs or systems; Z83.3 Family history of diabetes mellitus; Z68.32 Body mass index [BMI] 32.0-32.9, adult; Z90.49 Acquired absence of other specified parts of digestive tract
CPT/HCPCS: 36415; 71045; 71275; 80048; 80061; 80076; 80307; 81001; 82550; 83690; 83735; 83880; 84443; 84484; 85025; 85379; 85610; 85651; 85730; 86140; 87086; 87426; 93005; 96374; J1650; J2270; J3490; J7120; Q9967; U0003; 99285-25; J7030

== ENCOUNTER → 2021-08-02 | Outpatient (CLI) | payer OTHER ==
[2021-08-02 11:04] LABS: BASO # 0.1 x10^3/uL (0.0-0.2); BASO % 1 % (0-3); EOS # 0.1 x10^3/uL (0.0-0.7); EOS % 1 % (0-3); HEMATOCRIT 41.5 % (36.0-47.0); HEMOGLOBIN 13.5 g/dL (12.0-15.5); LYMPH # 1.4 x10^3/uL (1.0-4.8); LYMPH % 19 % (24-48); MEAN CORPUSCULAR HEMOGLOBIN 32 pg (25-35); MEAN CORPUSCULAR HGB CONC 32 g/dL (31-37); MEAN CORPUSCULAR VOLUME 98 fL (79-100); MONO # 0.5 x10^3/uL (0.0-1.1); MONO % 6 % (0-9); NEUT # 5.6 x10^3uL (1.8-7.7); NEUT % 73 % (31-73); PLATELET COUNT 247 x10^3/uL (140-400); RED BLOOD COUNT 4.23 x10^6/uL (3.50-5.40); RED CELL DISTRIBUTION WIDTH 14.1 % (11.5-14.5); WHITE BLOOD COUNT 7.6 x10^3/uL (4.0-11.0)
[2021-08-02 11:21] LABS: ALBUMIN 3.7 g/dL (3.4-5.0); ALBUMIN/GLOBULIN RATIO 1.2 (1.0-1.7); CREATININE 1.4 mg/dL (0.6-1.0); POTASSIUM 5.1 mmol/L (3.5-5.1); TOTAL BILIRUBIN 0.8 mg/dL (0.2-1.0); TOTAL PROTEIN 6.8 g/dL (6.4-8.2)
[2021-08-02 13:18] LABS: CHOLESTEROL/HDL RATIO 1.9
== END ==
LOC: LAB 10:01
PROVIDERS: ATTEND Internal Medicine Cardiovascular Disease
DX: I25.10 Atherosclerotic heart disease of native coronary artery without angina pectoris (principal)
CPT/HCPCS: 36415; 80053; 80061; 85025